=== PATIENT | male | born 1950 | race Asian ===

== ENCOUNTER 2018-11-24 05:30 | Day surgery (SDC) | payer OTHER ==
[~2018-11-24] VITALS: Ht 167.6 cm; Wt 75.0 kg
[2018-11-24] VITALS (13 sets, daily range): BP systolic 110–156; BP diastolic 61–87; PULSE 54–68; RESP 13–22; Ht 167.6 cm; Wt 75.0 kg
[~2018-11-24 05:30] MED LIST: CEFAZOLIN 2 GM/50 ML (PMX) 50 ML IVPB ONE; SOD CHLORIDE 0.9% 1,000 ML IV ONE
[2018-11-24] MEDS ORDERED: BUPIVACAINE 0.25% (MPF) 30 ML INJ ONE (07:04)
[2018-11-24] MEDS ORDERED: IBUP100O28 PO (07:10)
[2018-11-24] MEDS ORDERED: ALLO300T2 PO (07:10)
[2018-11-24] MEDS ORDERED: AMLO-218 PO (07:10)
[2018-11-24] MEDS ORDERED: ATOR40TA68 PO (07:10)
[2018-11-24] MEDS ORDERED: MULT1TAB6 PO (07:10)
--- NOTE | 2018-11-24 07:34 | PREAC ---
Date/Time of Note Date/Time of Note DATE: 11/24/18 TIME: 07:33 Anesthesia Eval and Record Evaluation Time Pre-Procedure Interview DATE: 11/24/18 TIME: 07:33 Age 68 Sex male NPO: 8 hrs Preoperative diagnosis gallstones Planned procedure lap aly Past Medical History Past Medical History: Includes Cardio: HTN, Dyslipidemia Surgery & Anesthesia Issues No known issue Meds Anticoagulation: No Beta Osiris within 24 hr: No Reason Beta Osiris not given: Pt. not on B-Osiris Reported Medications Folic Acid/Mv,Fe,Other Min (Centrum Complete Multivit Tab) 1 Each Tablet, 1 EACH PO DAILY, TAB 11/24/18 Ibuprofen (Ibuprofen) 100 Mg/5 Ml Oral.susp, 600 MG PO Q6H PRN for PAIN, ML 11/24/18 Allopurinol* (Allopurinol*) 300 Mg Tablet, 300 MG PO 3 TIMES A WEEK, TAB 11/24/18 Amlodipine Besylate* (Norvasc*) 10 Mg Tablet, 20 MG PO DAILY, TAB 11/24/18 Atorvastatin* (Atorvastatin*) 40 Mg Tablet, 40 MG PO QHS, #30 TAB 11/24/18 Meds reviewed: Yes Allergies Coded Allergies: No Known Allergy (Unverified , 10/31/18) Allergies Reviewed: Yes Labs/Studies Labs Reviewed: Reviewed by anesthesiologist test: N/A Studies: ECG Pre-procedure Exam Last vitals Vital Signs Date Temp Pulse Resp B/P (MAP) Pulse Ox O2 O2 Flow FiO2 Time Delivery Rate 11/24/18 97.4 68 18 156/80 99 Room Air 06:27 (105) Airway: Adequate mouth opening, Adequate thyromental dist Mallampati: Mallampati II Teeth: Normal Lung: Normal Heart: Normal ASA Physical Status ASA physical status: 2 Emergency: None Planned Anesthetic General/MAC: ETT Nerve block: TAP (bilateral) Pre-operative Attestations Prior to commencing anesthesia and surgery, the patient was re-evaluated, there was verification of: *The patient's identity *The results of appropriate recent lab work and preoperative vital signs *The above evaluation not changing prior to induction *Anesthetic plan, risk benefits, alternative and complications discussed with patient/family; questions answered; patient/family understands, accepts and wishes to proceed. JAHAIRA ACEVEDO Nov 24, 2018 07:34
[2018-11-24] MEDS ORDERED: HYDROmorphONE 1 MG/5 ML IV SYRINGE IV PRN ×3 (08:00)
[2018-11-24] MEDS ORDERED: ONDANSETRON 4 MG INJ IV PRN (08:00)
[2018-11-24] MEDS ORDERED: ALBUTEROL 0.083% (NEB) 2.5 MG/3 ML AMP HHN PRN (08:00)
[2018-11-24] MEDS ORDERED: FENTAnyl 50 MCG/ML VIAL IV PRN ×3 (08:00)
[2018-11-24] MEDS ORDERED: METOCLOPRAMIDE 10 MG INJ IV PRN (08:00)
[2018-11-24] MEDS ORDERED: DIPHENHYDRAMINE 50 MG INJ IV PRN (08:00)
[2018-11-24] MEDS ORDERED: MEPERIDINE 25 MG INJ IV PRN (08:00)
--- NOTE | 2018-11-24 08:46 | OPR ---
Date/Time of Note Date/Time of Note DATE: 11/24/18 TIME: 08:43 Operative Report Procedure Date: Nov 24, 2018 Preoperative Diagnosis symptomatic gallstones Postoperative Diagnosis same Operation/Procedure Performed laparoscopic cholecystectomy Surgeon see signature line Premises Technician none Anesthesia Type: general Estimated Blood Loss: 0 - 10 ml's Transfusion none Specimen gallbladder Grafts/Implants none Complications none Pt Condition Post Procedure: stable Indications This is a 68-year-old male with symptomatic gallstones. He request surgical excision of the gallbladder. Risks alternatives benefits and percent were discussed with the patient. Patient expressed understanding consents to the operation. Procedure Description Patient is taken to the OR and prepped and draped in usual sterile fashion. Surgical time was performed. IV antibiotics were given. Infraumbilical transverse incision was made at the 15 blade. Using dissection cautery was carried down to the fascia. Fascia was grasped with Luana's and divided with curved masses. 0 Vicryl U stitches placed into the fascia. Stanley trocar was introduced. Pneumoperitoneum is established. Midepigastric 12 mm optical trochars placed under direct visualization. Right upper quadrant upper flank 5 mm optical trochars were placed under direct visualization. Upon initial inspection there are some adhesions to the gallbladder and thickening of the gallbladder wall consistent with chronic cholecystitis. The gallbladder was grasped the fundus and retracted in a lateral cephalad direction. [place] graspers were used to dissect out the cystic duct and cystic artery. The critical view was established. The cystic duct is divided to close proximal to distal and the divisions performed lap scopic scissors. Cystic artery was divided 3 clips proximal to distal and the divisions performed laparoscopic as per the gallbladder was taken of the gallbladder bed. Good hemostasis status. Minimal suction irrigation is used. Gallbladder is achieved Endo Catch bag. Ports removed under direct position. Overdiuresis tied down. Skin is closed using skin karen. A tap block was provided by the anesthesia thousand. Dry dressings were applied. Tyree LOPEZ Nov 24, 2018 08:46
[2018-11-24] MEDS ORDERED: HYDROCODONE/APAP (5/325) TAB PO ONE (09:00)
--- NOTE | 2018-11-24 22:17 | PAC ---
Date/Time of Note Date/Time of Note DATE: 11/24/18 TIME: 22:17 Post-Anesthesia Notes Post-Anesthesia Note Last documented vital signs Vital Signs Date Temp Pulse Resp B/P (MAP) Pulse Ox O2 O2 Flow FiO2 Time Delivery Rate 11/24/18 97.0 63 18 120/67 96 Room Air 09:45 (84) 11/24/18 8.0 08:55 Activity: WNL Respiratory function: WNL Cardiovascular function: WNL Mental status: Baseline Pain reasonably controlled: Yes Hydration appropriate: Yes Nausea/Vomiting absent: Yes JAHAIRA ACEVEDO Nov 24, 2018 22:17
== END 2018-11-24 10:30 | disposition home or self-care (01) ==
LOC: SDS 05:30
PROVIDERS: ATTEND Surgery
DX: K80.20 Calculus of gallbladder without cholecystitis without obstruction (principal); I10 Essential (primary) hypertension; E78.5 Hyperlipidemia, unspecified
CPT/HCPCS: 47562; J1170; J2175; J2405; Z7512; Z7610; 88304